=== PATIENT | male | born 1970 | race Caucasian/White ===

== ENCOUNTER → 2018-02-12 10:23 | Outpatient (CLI) | payer OTHER, SELFPAY ==
--- NOTE | 2018-02-12 10:28 | DI.RAD.S_ITS ---
PROCEDURE: XR SHOULDER RT MIN 2V INDICATIONS: right shoulder pain TECHNIQUE: 3 views of the shoulder were acquired. COMPARISON: None. FINDINGS: Bones: No fractures or dislocations. No suspicious bony lesions. Visualized ribs appear intact. 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 Soft tissues: No suspicious soft tissue calcifications. IMPRESSION: No shoulder fracture or dislocation. Mild to moderate a.c. joint and glenohumeral joint osteophytes. Dictated by: Francis Long M.D. on 02/12/2018 at 10:49 Approved by: Francis Long M.D. on 02/12/2018 at 10:51
== END ==
PROVIDERS: Visit Provider Physician Assistant
DX: M25.511 Pain in right shoulder (principal); M25.711 Osteophyte, right shoulder
CPT/HCPCS: 73030

== ENCOUNTER 2021-07-01 11:41 | Emergency (ER) | payer OTHER, SELFPAY ==
[2021-07-01 11:48] VITALS: BP 147/83; PULSE 97; RESP 18; TEMP 36.8; O2SAT 99; BMI 29.5
[2021-07-01 12:22] LABS: COVID19 -Nasal RAPID Negative (Negative)
[2021-07-01] MEDS: diphenhydrAMINE 50 MG/ML VIAL IV (14:41)
[2021-07-01] MEDS: methylPREDNISolone 125 MG/2 ML VIAL IV (14:41)
[2021-07-01] MEDS: FAMOTIDINE 20 MG/2 ML VIAL IV (14:41)
--- NOTE | 2021-07-01 16:35 | PC.NURSE ---
Pt redness and swelling improving, rash also improving. Pt still has some redness on face, back, and chest and pt reports those areas feel warm.
--- NOTE | 2021-07-01 16:57 | ED.SKABFB ---
HPI - Skin/Abscess/Foreign Bdy General Chief complaint: Skin/Abscess/Foreign Body Stated complaint: FACE SWELLING, CHILLS Time Seen by Provider: 07/01/21 14:21 Source: patient Mode of arrival: Ambulatory Limitations: no limitations History of Present Illness HPI narrative: 51-year-old gentleman with no significant medical history who currently takes no medications will up at 3:00 a.m. with significant itching and a sense that his face was swelling. No wheezing no tongue or throat tightness. He denies any new exposures, new laundry detergents new bedding materials medications or any reason that he might be having an acute allergic reaction. He did take some oral Benadryl at about 8:00 a.m. but notice that his face was continuing to swell he was starting to get some lip swelling rash was developing over his face and torso in his right ear was becoming more swollen. He came in for further evaluation. He denies any fever, cough, chills, vomiting, diarrhea, abdominal pain, palpitations, headache, wheeze or dyspnea. Related Data Previous Rx's Medication Instructions Recorded methylprednisolone 4 mg tablets in 4 mg PO DAILY #21 ea 07/01/21 a dose pack (Medrol (Diego)) Allergies Allergy/AdvReac Type Severity Reaction Status Date / Time No Known Drug Allergies Allergy Verified 07/01/21 11:52 Review of Systems Review of Systems Narrative: Remainder of complete review of systems is otherwise unremarkable except for that included in the HPI. Patient History Social History Smoking Status: Former smoker Smoking Status: Former smoker alcohol intake frequency: 0-2 drinks per day Substance Use Type: does not use Exam Initial Vital Signs Initial Vital Signs: Vital Signs Temperature 98.3 F 07/01/21 11:48 Pulse Rate 97 H 07/01/21 11:48 Respiratory Rate 18 07/01/21 11:48 Blood Pressure 147/83 H 07/01/21 11:48 Pulse Oximetry 99 07/01/21 11:48 General: Erythematous facial area with subdermal edema. To give a complete and coherent history. Well-nourished well-developed HEENT: Moist mucous membranes, normal sclera with reactive pupils, no throat or tongue swelling slightly swollen lips, normal voice. Neck: No JVD, supple Respiratory: Lungs are clear to auscultation, no wheezing no rales no rhonchi. Full and symmetrical air movement Cardiac: Regular rate and rhythm no murmurs no bruits Abdomen: Soft, nontender, good bowel tones, no flank pain Skin: Urticarial rash to the entire face spreading down the neck and upper chest. Some minor swelling to the right ear. Neurologic: Grossly neurologically intact with no obvious asymmetries or abnormalities Extremities: No trauma, well perfused Psych: Cooperative, appropriate insight and affect Course Orders Ordered: ED Orders 07/01/21 11:53 COVID19 -Nasal swab/Pre-Proc Stat Discontinued Medications Diphenhydramine HCl (Diphenhydramine 50 Mg/Ml Vial) 50 mg IV NOW ONE Stop: 07/01/21 14:36 Last Admin: 07/01/21 14:41 Dose: 50 mg Documented by: ATAYLOR Famotidine (Famotidine 20 Mg/2 Ml Vial) 20 mg IV NOW ONE Stop: 07/01/21 14:37 Last Admin: 07/01/21 14:41 Dose: 20 mg Documented by: ATAYLOR Methylprednisolone (Methylprednisolone 125 Mg/2 Ml Vial) 125 mg IV NOW ONE Stop: 07/01/21 14:36 Last Admin: 07/01/21 14:41 Dose: 125 mg Documented by: ATAYLOR Vital Signs Vital signs: Vital Signs - 8 hr 07/01/21 11:48 Temperature 98.3 F Pulse Rate 97 H Respiratory Rate 18 Blood Pressure 147/83 H Pulse Oximetry 99 MDM - Skin/Abscess/Foreign Bdy Lab Data Labs: Lab Results 07/01/21 Range/Units 11:53 SARS-CoV-2 (PCR) Negative (Negative) MDM Narrative Medical decision making narrative: 51-year-old gentleman presents with acute allergic reaction that awoke him at 3:00 a.m.. Rapidly improving after IV Solu-Medrol, Pepcid and Benadryl. No signs of respiratory involvement. We reviewed the anticipatory guidance anticipated for unknown acute allergic reaction. He is given a Medrol Dosepak recommended daily nonsedating antihistamine as well as Pepcid for the next 7 days and recommended he return if symptoms are worsening. Questions are answered and he is safe for home discharge Discharge Plan Departure Patient Disposition: Home Clinical Impression: Allergic reaction Instructions: Anaphylaxis Activity Restrictions/Additional Instructions: You for coming in Frequently, whenever to figure out what were allergic to would have reaction such as this. In the emergency room your give a large dose of steroid medicine. Going to give you a prescription for a Medrol dose pack which has a decreasing dose of steroid every day for the next 5 days. please complete this I would recommend a non sedating antihistamines such as Claritin, Varsha, or Zyrtec daily for the next 7 days I would also recommend Pepcid AC daily for the next 7 days. Although this is a stomach acid medicine it also covers up histamine receptors and histamine receptors are responsible for allergic reactions. If you are feeling itchy notice hives breaking through the above treatment or having trouble sleeping because of the medications, please feel free to add Benadryl to this regimen. The steroid was electronically transmitted to [facility]'s, the other medications are all [id number]. If you feel like you are getting worse, please return Prescriptions: New methylprednisolone [Medrol (Diego)] 4 mg tablets,dose pack 4 mg PO DAILY Qty: 21 0RF
[2021-07-01 17:07] VITALS: BP 138/87; PULSE 100; RESP 16; O2SAT 97
== END 2021-07-01 17:20 | disposition home or self-care (01) ==
PROVIDERS: Emergency Provider Emergency Medicine
DX: T78.40XA Allergy, unspecified, initial encounter (principal); Z20.822 Contact with and (suspected) exposure to COVID-19
CPT/HCPCS: 87635; 96374; 96375; 99283; 99284; C9803; J1200; J2930